=== PATIENT | female | born 1960 ===

== ENCOUNTER 2025-01-14 05:50 | Day surgery (SDC) | payer OTHER ==
[2025-01-14] MEDS ORDERED: fentaNYL CITRATE 50 MCG/ML AMPUL IV PUSH ONE (13:00)
[2025-01-14] MEDS ORDERED: MIDAZOLAM HCL 2 MG/2 ML VIAL IV ONE (13:00)
== END 2025-01-14 13:00 | disposition home or self-care (01) ==
LOC: AMB-ENDOS 05:50
PROVIDERS: ATTEND Internal Medicine
DX: D12.2 Benign neoplasm of ascending colon (principal); K63.5 Polyp of colon; K57.30 Diverticulosis of large intestine without perforation or abscess without bleeding; K64.8 Other hemorrhoids; K64.4 Residual hemorrhoidal skin tags